=== PATIENT | female | born 1985 | race Caucasian/White ===

== ENCOUNTER 2016-07-03 09:19 | Emergency (ER) | payer BC, MEDICAID ==
[2016-07-03 09:38] VITALS: BP 110/74
--- NOTE | 2016-07-03 09:50 | EDM.PDOC ---
<Amandeep North - Last Filed: 07/03/16 11:48> ED HPI RENAL/ - General Chief Complaint: Genitourinary Problem Stated Complaint: HURTS TO PEE Time Seen by Provider: 07/03/16 09:45 - Related Data Allergies/ADRs: Allergies Allergy/AdvReac Type Severity Reaction Status Date / Time No Known Allergies Allergy Verified 03/09/15 06:51 Home Meds: Home Meds Desogestrel-Ethinyl Estradiol [Kaliaer 28 Day Tablet] 1 each PO DAILY 07/03/16 [ History] Fluconazole [IJD: Fluconazole] 150 mg PO ONETIME 07/03/16 [History] Sulfamethoxazole/Trimethoprim [Take Home: Sulfamethoxazole/Trimet, 1 Tab Pac] 1 tab PO DAILY 07/03/16 [History] ED ROS GENERAL - Review of Systems Review Of Systems: See Below Constitutional: Reports: no symptoms HEENT: Reports: No symptoms Respiratory: Reports: No Symptoms Cardiovascular: Reports: No symptoms GI/Abdominal: Reports: No symptoms : Reports: dysuria, pain Course - Vital Signs Last Recorded V/S: Last Vital Signs Temp 98.6 F 07/03/16 09:22 Pulse 108 H 07/03/16 09:22 Resp 16 07/03/16 09:22 BP 110/74 07/03/16 09:22 Pulse Ox 99 07/03/16 09:22 - Orders/Labs/Meds Orders: Active Orders 24 hr Category Date Time Status CHLAMYDIA TRACHOMATIS/GC AMPLF Stat Lab 07/03/16 10:00 Received CULTURE WOUND [RM] Stat Lab 07/03/16 11:12 Uncollected Labs: Laboratory Tests 07/03/16 07/03/16 Range/Units 09:30 09:30 Urine Color Yellow (YELLOW) Urine Appearance Slightly cloudy (CLEAR) Urine pH 5.5 (5.0-9.0) Ur Specific [place] >= 1.030 (1.005-1.030) Urine Protein Negative (NEGATIVE) Urine Glucose (UA) Negative (NEGATIVE) Urine Ketones Negative (NEGATIVE) Urine Occult Blood Trace-lysed H (NEGATIVE) Urine Nitrite Negative (NEGATIVE) Urine Bilirubin Negative (NEGATIVE) Urine Urobilinogen 0.2 (0.2-1.0) mg/dL Ur Leukocyte Esterase Small H (NEGATIVE) Urine RBC 5-10 H /HPF Urine WBC 30-40 H (0-5/HPF) /HPF Ur Epithelial Cells Moderate H /HPF Urine Bacteria Rare (0-FEW/HPF) /HPF Urine HCG, Qual Negative Departure - Departure Time of Disposition: 11:48 Disposition: Home, Self-Care 01 Clinical Impression: Bacterial vaginitis Instructions: Bacterial Vaginosis, [id number] Forms: ED Department Discharge Additional Instructions: Please start acyclovir 200 mg fiver times daily while awake for 10 days. This will treat suspected herpes infection pending the culture results. You tested positive for bacterial vaginosis which is a vaginal infection (not an STD) that is treated with a 7 day course of metronidazole. Please do not drink alcohol with the metronidazole as it will cause nausea and vomiting. Follow-up with your primary doctor for results of your testing here in the ER and also to re- evaluate the labial lesions after treatment. - My Orders Last 24 Hours: My Active Orders 07/03/16 10:00 CHLAMYDIA TRACHOMATIS/GC AMPLF Stat 07/03/16 11:12 CULTURE WOUND [RM] Stat - Assessment/Plan Last 24 Hours: My Active Orders 07/03/16 10:00 CHLAMYDIA TRACHOMATIS/GC AMPLF Stat 07/03/16 11:12 CULTURE WOUND [RM] Stat <Angelica Duran - Last Filed: 07/03/16 12:31> ED HPI RENAL/ - General Source of Information: Reports: Patient History Limitations: Reports: No limitations - History of Present Illness INITIAL COMMENTS - FREE TEXT/NARRATIVE: Dianna Serrano is a 30 year old female presenting to the ED with a 3 day history of dysuria, lower pelvic pain, and vaginal discharge. She was seen in clinic on 2 days ago and was started on Bactrim for a UTI. She was also treated with diflucan and metronidazole vaginal suppositories. She has been taking the medication and used the vaginal metronidazole once. Yesterday she started getting painful bumps in the vaginal area. The lower pelvic pain is improved. She still has dysuria and thicker yellow vaginal discharge. She denies fevers or chills. She is sexually active. She reports the same partner for the last 6 months. LMP was 06/24/2016 and she is on OCPs for which she reports compliance. 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: Musculoskeletal History: Reports: None Neurological History: Reports: None Psychiatric History: Reports: None Endocrine/Metabolic History: Reports: None Immunologic History: Reports: None Oncologic (Cancer) History: Reports: None Dermatologic History: Reports: None - Past Surgical History Female Surgical History: Reports: None Social & Family History - Tobacco Use Smoking Status *Q: Current Every Day Smoker Years of Tobacco use: 3 Packs/Tins Daily: 0.5 Used Tobacco, but Quit: No Second Hand Smoke Exposure: Yes - Caffeine Use Caffeine Use: Reports: Coffee, Soda - Recreational Drug Use Recreational Drug Use: No ED ROS GENERAL - Review of Systems Review Of Systems: ROS reveals no pertinent complaints other than HPI. ED EXAM, RENAL/ - Physical Exam Exam: See Below Exam Limited By: No limitations General Appearance: alert, WD/WN, no apparent distress Eye Exam: bilateral eye: PERRL Ears: normal external exam, normal canal, hearing grossly normal, normal TMs Nose: normal inspection, normal mucosa, no blood Throat/Mouth: Normal inspection, Normal lips, Normal teeth, Normal gums, Normal oropharynx Head: atraumatic, normocephalic Neck: normal inspection, supple, non-tender, full range of motion Respiratory/Chest: no respiratory distress, lungs clear, normal breath sounds, no accessory muscle use, chest non-tender. No: respiratory distress, crackles, rales, rhonchi, wheezing Cardiovascular: regular rate, rhythm. No: no murmur GI/Abdominal: normal bowel sounds, soft, non tender, no organomegaly, no distention, no mass. No: guarding, rigid, rebound (Female) Exam: Normal bimanual exam (no CMT or adnexal masses/fullness appreciated), Vaginal discharge (copious white to yellow discharge in the vaginal canal; no active drainage from the cervix), Other (over the labia majora are pustules and vesicles in clusters particularly the right labia majora ; some of the lesions are ulcerative particulary one near the uretral opening; the lesions are equisitly tender). No: Adnexal mass, Adnexal tenderness, Cervix motion tenderness, Enlarged uterus, Uterine tenderness, Vaginal bleeding Back Exam: normal inspection, full range of motion Extremities: normal inspection, normal range of motion, non-tender Neurological: alert, oriented Psychiatric: normal affect, normal mood Skin Exam: Warm, Dry Lymphatic: no adenopathy Course - Re-Assessments/Exams Free Text/Narrative Re-Assessment/Exam: Bimanual exam negative for signs of cervicitis or PID. The lesions on the genitals are consistent with HSV. Certainly lichen sclerosis or folliculitis is possible but this would not be a typical presentation for those. I did get a culture of the lesions for further evidence of HSV. Wet prep positive for clue cells and WBCs consistent with BV. Urine testing showed WBCs also consistent with BV; rare bacteria. 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 I would recommend empiric treatment with acyclovir pending the culture of the lesions. Gonorrhea and chlamydia testing collected but there is no evidence of PID on exam so empiric treatment is not warranted. BV found and will be treated with metronidazole with patient instructions to avoid alcohol. I would recommend close follow-up with her PCP. She needs to avoid sexual intercourse while having active lesions and warn sexual partners of this history (if confirmed on culture or recurrent).
== END 2016-07-03 11:46 | disposition home or self-care (01) ==
LOC: EEVIPCON 09:19 → DL.ED 09:19
DX: N76.0 Acute vaginitis (principal); B96.89 Other specified bacterial agents as the cause of diseases classified elsewhere; K21.9 Gastro-esophageal reflux disease without esophagitis; F17.210 Nicotine dependence, cigarettes, uncomplicated; Z87.440 Personal history of urinary (tract) infections; Z79.899 Other long term (current) drug therapy
CPT/HCPCS: 81001; 81025; 87070; 87077; 87186; 87210; 87491; 87591; 99283

== ENCOUNTER 2018-07-10 17:27 | Emergency (ER) | payer BC, MEDICAID ==
[2018-07-10 17:37] VITALS: BP 122/70
--- NOTE | 2018-07-10 17:50 | EDM.PDOC ---
<Jessica Quintanilla - Last Filed: 07/11/18 06:07> ED HPI GENERAL MEDICAL PROBLEM - General Chief Complaint: Flank Pain Stated Complaint: RT SIDE PAIN Time Seen by Provider: 07/10/18 17:50 - Related Data Allergies Allergy/AdvReac Type Severity Reaction Status Date / Time No Known Allergies Allergy Verified 03/09/15 06:51 Home Meds: Home Meds Desogestrel-Ethinyl Estradiol [Juleber 28 Day Tablet] 1 each PO DAILY 07/03/16 [ History] ED ROS GENERAL - Review of Systems Review Of Systems: ROS reveals no pertinent complaints other than HPI. Course - Vital Signs Last Recorded V/S: Last Vital Signs Temp 98.2 F 07/10/18 17:35 Pulse 82 07/10/18 17:35 Resp 16 07/10/18 17:35 BP 122/70 07/10/18 17:35 Pulse Ox 100 07/10/18 17:35 - Orders/Labs/Meds Labs: Laboratory Tests 07/10/18 07/10/18 07/10/18 Range/Units 17:42 17:42 18:02 WBC 7.3 (5.0-10.0) 10^3/uL RBC 4.83 (4.2-5.4) 10^6/uL Hgb 15.0 (12.0-16.0) g/dL Hct 44.8 (37.0-47.0) % MCV 92.8 (80-100) fL MCH 31.1 (27.0-34.0) pg MCHC 33.5 (33.0-35.0) g/dL Plt Count 207 (150-450) 10^3/uL Neut % (Auto) 67.0 (42.2-75.2) % Lymph % (Auto) 24.1 (20.5-50.1) % [place] % (Auto) 7.8 (2-8) % Eos % (Auto) 1.0 (1.0-3.0) % Baso % (Auto) 0.1 (0.0-1.0) % Sodium (135-145) mmol/L Potassium (3.6-5.0) mmol/L Chloride (101-111) mmol/L Carbon Dioxide (21.0-31.0) mmol/L Anion Gap BUN (7-18) mg/dL Creatinine (0.6-1.3) mg/dL Est Cr Clr Drug Dosing mL/min Estimated GFR (MDRD) BUN/Creatinine Ratio Glucose (74-105) mg/dL Calcium (8.4-10.2) mg/dl Total Bilirubin (0.2-1.0) mg/dL AST (10-42) IU/L ALT (10-60) IU/L Alkaline Phosphatase (42-121) IU/L Total Protein (6.7-8.2) g/dl Albumin (3.2-5.5) g/dl Globulin Albumin/Globulin Ratio Amylase (28-100) U/L Lipase (22-51) U/L Urine Color Yellow (YELLOW) Urine Appearance Slightly cloudy (CLEAR) Urine pH 7.0 (5.0-9.0) Ur Specific [place] 1.025 (1.005-1.030) Urine Protein Negative (NEGATIVE) Urine Glucose (UA) Negative (NEGATIVE) Urine Ketones Trace H (NEGATIVE) Urine Occult Blood Trace-intact H (NEGATIVE) Urine Nitrite Negative (NEGATIVE) Urine Bilirubin Negative (NEGATIVE) Urine Urobilinogen 0.2 (0.2-1.0) mg/dL Ur Leukocyte Esterase Negative (NEGATIVE) Urine RBC 0-5 /HPF Urine WBC 0-5 (0-5/HPF) /HPF Ur Epithelial Cells Rare /HPF Amorphous Sediment Moderate H (0/HPF) /HPF Urine Bacteria Occasional (0-FEW/HPF) /HPF Urine Mucus Moderate H /LPF Urine HCG, Qual Negative 07/10/18 Range/Units 18:02 WBC (5.0-10.0) 10^3/uL RBC (4.2-5.4) 10^6/uL Hgb (12.0-16.0) g/dL Hct (37.0-47.0) % MCV (80-100) fL MCH (27.0-34.0) pg MCHC (33.0-35.0) g/dL Plt Count (150-450) 10^3/uL Neut % (Auto) (42.2-75.2) % Lymph % (Auto) (20.5-50.1) % [place] % (Auto) (2-8) % Eos % (Auto) (1.0-3.0) % Baso % (Auto) (0.0-1.0) % Sodium 137 (135-145) mmol/L Potassium 3.6 (3.6-5.0) mmol/L Chloride 103 (101-111) mmol/L Carbon Dioxide 23.0 (21.0-31.0) mmol/L Anion Gap 14.6 BUN 11 (7-18) mg/dL Creatinine 0.7 (0.6-1.3) mg/dL Est Cr Clr Drug Dosing 100.55 mL/min Estimated GFR (MDRD) > 60 BUN/Creatinine Ratio 15.71 Glucose 95 (74-105) mg/dL Calcium 9.2 (8.4-10.2) mg/dl Total Bilirubin 0.7 (0.2-1.0) mg/dL AST 22 (10-42) IU/L ALT 22 (10-60) IU/L Alkaline Phosphatase 78 (42-121) IU/L Total Protein 7.4 (6.7-8.2) g/dl Albumin 4.5 (3.2-5.5) g/dl Globulin 2.9 Albumin/Globulin Ratio 1.55 Amylase 69 (28-100) U/L Lipase 22 (22-51) U/L Urine Color (YELLOW) Urine Appearance (CLEAR) Urine pH (5.0-9.0) Ur Specific [place] (1.005-1.030) Urine Protein (NEGATIVE) Urine Glucose (UA) (NEGATIVE) Urine Ketones (NEGATIVE) Urine Occult Blood (NEGATIVE) Urine Nitrite (NEGATIVE) Urine Bilirubin (NEGATIVE) Urine Urobilinogen (0.2-1.0) mg/dL Ur Leukocyte Esterase (NEGATIVE) Urine RBC /HPF Urine WBC (0-5/HPF) /HPF Ur Epithelial Cells /HPF Amorphous Sediment (0/HPF) /HPF Urine Bacteria (0-FEW/HPF) /HPF Urine Mucus /LPF Urine HCG, Qual Meds: Medications Discontinued Medications Generic Name Dose Route Start Last Admin Trade Name Freq PRN Reason Stop Dose Admin Iopamidol 75 ml 07/10/18 18:44 07/10/18 18:51 Isovue-300 (61%) IVPUSH 07/10/18 18:45 75 ml ONETIME ONE Administration Ondansetron HCl Confirm 07/10/18 19:50 07/10/18 19:56 Zofran Odt Administered 07/10/18 19:51 Not Given Dose 8 mg .ROUTE .STK-MED ONE Sodium Chloride 10 ml 07/10/18 17:56 07/10/18 18:05 Saline Flush FLUSH 10 ml ASDIRECTED PRN Administration Keep Vein Open Departure - Departure Time of Disposition: 19:50 Disposition: Home, Self-Care 01 Condition: Good Clinical Impression: Right flank pain, Nausea - Discharge Information *PRESCRIPTION DRUG MONITORING PROGRAM REVIEWED*: Yes *COPY OF PRESCRIPTION DRUG MONITORING REPORT IN PATIENT BERTHA: No Instructions: Flank Pain, Adult, [id number] Referrals: PCP,None [Ordering Only Provider] - Forms: ED Department Discharge Additional Instructions: clear liquid diet small amounts more frequently, advance as tolerated encourage fluids as able tylenol 650mg every 4 hours as needed for discomfort, may alternate with 600mg ibuprofen, taken with food zofran 4mg ODT every 6 hours as needed for nausea #2 follow up if symptoms worsen <MccallLaisha - Last Filed: 07/11/18 20:33> ED HPI GENERAL MEDICAL PROBLEM - General Source of Information: Reports: Patient, RN, RN Notes Reviewed History Limitations: Reports: No Limitations - History of Present Illness INITIAL COMMENTS - FREE TEXT/NARRATIVE: Pt to ER with c/o RUQ pain that shoots to the RLQ. She states the pain began yesterday morning and has progressively gotten worse. She denies urinary sx, fever, vomiting or diarrhea. She admits to chills and nausea. Pt states she does still have her gallbladder and appendix. Patient states she is unsure about . States she has not eaten much since the pain and nausea began. 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: Musculoskeletal History: Reports: None Neurological History: Reports: None Psychiatric History: Reports: None Endocrine/Metabolic History: Reports: None Hematologic History: Reports: None Immunologic History: Reports: None Oncologic (Cancer) History: Reports: None Dermatologic History: Reports: None - Infectious Disease History Infectious Disease History: Reports: None - Past Surgical History Head Surgeries/Procedures: Reports: None Social & Family History - Family History Family Medical History: Noncontributory - Tobacco Use Smoking Status *Q: Current Every Day Smoker Years of Tobacco use: 10 Packs/Tins Daily: 1 - Caffeine Use Caffeine Use: Reports: Energy Drinks, Soda - Recreational Drug Use Recreational Drug Use: No ED ROS GENERAL - Review of Systems Review Of Systems: ROS reveals no pertinent complaints other than HPI. ED EXAM, RENAL/ - Physical Exam Exam: See Below Exam Limited By: No Limitations General Appearance: Alert, WD/WN, Mild Distress Eye Exam: Bilateral Eye: EOMI, Normal Inspection Ears: Normal External Exam, Hearing Grossly Normal Nose: Normal Inspection Throat/Mouth: Normal Inspection, Normal Voice, No Airway Compromise Head: Atraumatic, Normocephalic Neck: Normal Inspection, Supple, Non-Tender, Full Range of Motion Respiratory/Chest: No Respiratory Distress, Lungs Clear, Normal Breath Sounds, No Accessory Muscle Use, Chest Non-Tender Cardiovascular: Normal Peripheral Pulses, Regular Rate, Rhythm, No Edema, No Gallop, No JVD, No Murmur, No Rub GI/Abdominal: Normal Bowel Sounds, Soft, No Organomegaly, No Distention, No Abnormal Bruit, No Mass, Pelvis Stable, Tender (RUQ, LUQ, RLQ) (Female) Exam: Deferred Rectal (Female) Exam: Deferred Back Exam: Normal Inspection, Full Range of Motion, NT Extremities: Normal Inspection, Normal Range of Motion, Non-Tender, Normal Capillary Refill, No Pedal Edema Neurological: Alert, Oriented, CN II-XII Intact, Normal Cognition, Normal Gait, Normal Reflexes, No Motor/Sensory Deficits Psychiatric: Normal Affect, Normal Mood Skin Exam: Warm, Dry, Intact, Normal Color, No Rash Lymphatic: No Adenopathy Course - Orders/Labs/Meds Labs: Laboratory Tests 07/10/18 07/10/18 07/10/18 Range/Units 17:42 17:42 18:02 WBC 7.3 (5.0-10.0) 10^3/uL RBC 4.83 (4.2-5.4) 10^6/uL Hgb 15.0 (12.0-16.0) g/dL Hct 44.8 (37.0-47.0) % MCV 92.8 (80-100) fL MCH 31.1 (27.0-34.0) pg MCHC 33.5 (33.0-35.0) g/dL Plt Count 207 (150-450) 10^3/uL Neut % (Auto) 67.0 (42.2-75.2) % Lymph % (Auto) 24.1 (20.5-50.1) % [place] % (Auto) 7.8 (2-8) % Eos % (Auto) 1.0 (1.0-3.0) % Baso % (Auto) 0.1 (0.0-1.0) % Sodium (135-145) mmol/L Potassium (3.6-5.0) mmol/L Chloride (101-111) mmol/L Carbon Dioxide (21.0-31.0) mmol/L Anion Gap BUN (7-18) mg/dL Creatinine (0.6-1.3) mg/dL Est Cr Clr Drug Dosing mL/min Estimated GFR (MDRD) BUN/Creatinine Ratio Glucose (74-105) mg/dL Calcium (8.4-10.2) mg/dl Total Bilirubin (0.2-1.0) mg/dL AST (10-42) IU/L ALT (10-60) IU/L Alkaline Phosphatase (42-121) IU/L Total Protein (6.7-8.2) g/dl Albumin (3.2-5.5) g/dl Globulin Albumin/Globulin Ratio Amylase (28-100) U/L Lipase (22-51) U/L Urine Color Yellow (YELLOW) Urine Appearance Slightly cloudy (CLEAR) Urine pH 7.0 (5.0-9.0) Ur Specific [place] 1.025 (1.005-1.030) Urine Protein Negative (NEGATIVE) Urine Glucose (UA) Negative (NEGATIVE) Urine Ketones Trace H (NEGATIVE) Urine Occult Blood Trace-intact H (NEGATIVE) Urine Nitrite Negative (NEGATIVE) Urine Bilirubin Negative (NEGATIVE) Urine Urobilinogen 0.2 (0.2-1.0) mg/dL Ur Leukocyte Esterase Negative (NEGATIVE) Urine RBC 0-5 /HPF Urine WBC 0-5 (0-5/HPF) /HPF Ur Epithelial Cells Rare /HPF Amorphous Sediment Moderate H (0/HPF) /HPF Urine Bacteria Occasional (0-FEW/HPF) /HPF Urine Mucus Moderate H /LPF Urine HCG, Qual Negative 07/10/18 Range/Units 18:02 WBC (5.0-10.0) 10^3/uL RBC (4.2-5.4) 10^6/uL Hgb (12.0-16.0) g/dL Hct (37.0-47.0) % MCV (80-100) fL MCH (27.0-34.0) pg MCHC (33.0-35.0) g/dL Plt Count (150-450) 10^3/uL Neut % (Auto) (42.2-75.2) % Lymph % (Auto) (20.5-50.1) % [place] % (Auto) (2-8) % Eos % (Auto) (1.0-3.0) % Baso % (Auto) (0.0-1.0) % Sodium 137 (135-145) mmol/L Potassium 3.6 (3.6-5.0) mmol/L Chloride 103 (101-111) mmol/L Carbon Dioxide 23.0 (21.0-31.0) mmol/L Anion Gap 14.6 BUN 11 (7-18) mg/dL Creatinine 0.7 (0.6-1.3) mg/dL Est Cr Clr Drug Dosing 100.55 mL/min Estimated GFR (MDRD) > 60 BUN/Creatinine Ratio 15.71 Glucose 95 (74-105) mg/dL Calcium 9.2 (8.4-10.2) mg/dl Total Bilirubin 0.7 (0.2-1.0) mg/dL AST 22 (10-42) IU/L ALT 22 (10-60) IU/L Alkaline Phosphatase 78 (42-121) IU/L Total Protein 7.4 (6.7-8.2) g/dl Albumin 4.5 (3.2-5.5) g/dl Globulin 2.9 Albumin/Globulin Ratio 1.55 Amylase 69 (28-100) U/L Lipase 22 (22-51) U/L Urine Color (YELLOW) Urine Appearance (CLEAR) Urine pH (5.0-9.0) Ur Specific [place] (1.005-1.030) Urine Protein (NEGATIVE) Urine Glucose (UA) (NEGATIVE) Urine Ketones (NEGATIVE) Urine Occult Blood (NEGATIVE) Urine Nitrite (NEGATIVE) Urine Bilirubin (NEGATIVE) Urine Urobilinogen (0.2-1.0) mg/dL Ur Leukocyte Esterase (NEGATIVE) Urine RBC /HPF Urine WBC (0-5/HPF) /HPF Ur Epithelial Cells /HPF Amorphous Sediment (0/HPF) /HPF Urine Bacteria (0-FEW/HPF) /HPF Urine Mucus /LPF Urine HCG, Qual Meds: Medications Discontinued Medications Generic Name Dose Route Start Last Admin Trade Name Freq PRN Reason Stop Dose Admin Iopamidol 75 ml 07/10/18 18:44 07/10/18 18:51 Isovue-300 (61%) IVPUSH 07/10/18 18:45 75 ml ONETIME ONE Administration Ondansetron HCl Confirm 07/10/18 19:50 07/10/18 19:56 Zofran Odt Administered 07/10/18 19:51 Not Given Dose 8 mg .ROUTE .STK-MED ONE Sodium Chloride 10 ml 07/10/18 17:56 07/10/18 18:05 Saline Flush FLUSH 10 ml ASDIRECTED PRN Administration Keep Vein Open
[2018-07-10] MEDS ORDERED: Sodium Chloride 0.9% 10 ML Syringe FLUSH PRN (17:56)
[2018-07-10 18:32] LABS: ANION GAP 14.6; CHLORIDE,CL 103 mmol/L (101-111); SODIUM,NA 137 mmol/L (135-145)
[2018-07-10] MEDS ORDERED: Iopamidol 612 MG/ML 75 ML Bottle IVPUSH ONE (18:44)
[2018-07-10] MEDS ORDERED: Ondansetron 4 MG Tab.DIS ONE (19:50)
== END 2018-07-10 19:55 | disposition home or self-care (01) ==
LOC: DL.ED 17:27
DX: R10.11 Right upper quadrant pain (principal); R11.0 Nausea; F17.210 Nicotine dependence, cigarettes, uncomplicated
CPT/HCPCS: 36415; 74177; 80053; 81001; 81025; 82150; 83690; 85025; 99284; Q9967